=== PATIENT | female | born 1940 | race Caucasian/White ===

== ENCOUNTER 2024-04-02 11:11 | Inpatient (IN) | payer MEDICARE ==
[2024-04-02] MEDS: Diltiazem 25 MG/5 ML SDV IVPUSH ONE ×2 (11:29→14:08)
[2024-04-02] MEDS: Sodium Chloride 0.9% 10 ML Syringe FLUSH PRN (11:33)
[2024-04-02 11:38] LABS: BASOPHILS ABSOLUTE AUTO 0.02 K/uL (0.00-0.20); BASOPHILS PERCENT AUTO 0.4 % (0.0-2.0); EOSINOPHILS ABSOLUTE AUTO 0.02 K/uL (0.00-0.50); EOSINOPHILS PERCENT AUTO 0.4 % (0.0-5.0); HEMATOCRIT 41.1 % (34.0-46.0); HEMOGLOBIN 12.9 g/dL (11.7-15.5); LYMPHOCYTES ABSOLUTE AUTO 0.82 K/uL (0.50-3.50); LYMPHOCYTES PERCENT AUTO 14.7 % (10.0-50.0); MEAN CORPUSCULAR HEMOGLOBIN 29.6 pg (28.2-33.3); MEAN CORPUSCULAR HGB CONC 31.4 g/dL (31.7-36.0); MEAN CORPUSCULAR VOLUME 94.3 fL (84.0-98.0); MONOCYTES ABSOLUTE AUTO 0.46 K/uL (0.00-1.00); MONOCYTES PERCENT AUTO 8.2 % (2.0-14.0); NEUTROPHILS ABSOLUTE AUTO 4.26 K/uL (1.40-7.00); NEUTROPHILS PERCENT AUTO 76.3 % (45.0-80.0); PLATELET COUNT,PLT 282 K/uL (150-350); RED BLOOD CELL COUNT 4.36 M/uL (3.77-5.09); RED CELL DISTRIBUTION WIDTH 14.2 % (11.2-14.1); WHITE BLOOD CELL COUNT,WBC 5.6 K/uL (4.0-10.2)
[2024-04-02 12:20] LABS: ALBUMIN 2.7 g/dL (3.4-5.0); BILIRUBIN TOTAL 0.5 mg/dL (0.2-1.0); CALCIUM 9.1 mg/dL (8.5-10.1); CARBON DIOXIDE,CO2 32.4 mmol/L (21.0-32.0); CREATININE 0.83 mg/dL (0.51-1.17); EST CRCL DRUG DOSING (CG) 48.92 mL/min; MAGNESIUM 2.1 mg/dL (1.8-2.4); PROTEIN TOTAL,TP 5.9 g/dL (6.4-8.2)
[2024-04-02 12:21] LABS: ANION GAP 10.5 meq/L (7-15); POTASSIUM,K 2.9 mmol/L (3.5-5.1)
[2024-04-02] MEDS: Potassium Chloride 20 MEQ Tab.ER PO ONE ×4 (12:26→17:52)
[2024-04-02] MEDS: Diltiazem IR 60 MG Tab PO ONE (12:33)
[2024-04-02] MEDS: Furosemide 20 MG/2 ML VIAL IVPUSH ONE (14:07)
[2024-04-02] MEDS: Potassium Chloride 10 MEQ Tab.ER PO ONE ×2 (14:07→20:47)
[2024-04-02] MEDS: Apixaban 5 MG Tab PO SCH (14:17)
[2024-04-02] MEDS ORDERED: Acetaminophen 325 MG Tab PO PRN (14:19)
[2024-04-02] MEDS ORDERED: Ondansetron 4 MG Tab.DIS PO PRN (14:19)
[2024-04-02] MEDS: Diltiazem 125 MG in Sodium Chloride 0.9% 100 ML IV SCH (14:22)
[2024-04-02] MEDS: Sodium Chloride 0.9% 250 ML IV SCH (15:30)
[2024-04-02] MEDS: ALPRAZolam 0.25 MG Tab PO PRN (15:30)
[2024-04-02] MEDS: Albuterol/Ipratropium 3.0-0.5 MG/3 ML Neb Soln NEB PRN (15:30)
[2024-04-02] MEDS ORDERED: Loperamide 2 MG Tab PO PRN (16:00)
[2024-04-02] MEDS: Nicotine 7 MG/24 Hr Patch TRDERM SCH (16:13)
[2024-04-02 18:27] LABS: POTASSIUM,K 3.6 mmol/L (3.5-5.1)
[2024-04-02] MEDS: Albuterol 0.083% 2.5 MG/3 ML Neb Soln NEB PRN (18:30)
[2024-04-02] MEDS: Budesonide 0.5 MG/2 ML Neb Susp INH SCH (20:47)
[2024-04-02] MEDS: Arformoterol 15 MCG/2 ML Neb Soln INH SCH (20:47)
[2024-04-02] MEDS: LORazepam 0.5 MG Tab PO PRN (21:39)
[2024-04-02] MEDS: guaiFENesin 600 MG Tab.ER PO SCH (22:44)
[2024-04-03] MEDS: Diltiazem 125 MG/25 ML SDV ONE (01:41)
[2024-04-03] MEDS: Losartan 50 MG Tab PO SCH (07:15)
[2024-04-03 07:18] LABS: BASOPHILS ABSOLUTE AUTO 0.02 K/uL (0.00-0.20); BASOPHILS PERCENT AUTO 0.4 % (0.0-2.0); EOSINOPHILS ABSOLUTE AUTO 0.05 K/uL (0.00-0.50); EOSINOPHILS PERCENT AUTO 0.9 % (0.0-5.0); HEMATOCRIT 37.7 % (34.0-46.0); HEMOGLOBIN 11.5 g/dL (11.7-15.5); LYMPHOCYTES ABSOLUTE AUTO 0.93 K/uL (0.50-3.50); LYMPHOCYTES PERCENT AUTO 17.4 % (10.0-50.0); MEAN CORPUSCULAR HEMOGLOBIN 29.3 pg (28.2-33.3); MEAN CORPUSCULAR HGB CONC 30.5 g/dL (31.7-36.0); MEAN CORPUSCULAR VOLUME 96.2 fL (84.0-98.0); MONOCYTES ABSOLUTE AUTO 0.43 K/uL (0.00-1.00); MONOCYTES PERCENT AUTO 8.1 % (2.0-14.0); NEUTROPHILS PERCENT AUTO 73.2 % (45.0-80.0); PLATELET COUNT,PLT 254 K/uL (150-350); RED BLOOD CELL COUNT 3.92 M/uL (3.77-5.09); RED CELL DISTRIBUTION WIDTH 14.2 % (11.2-14.1); WHITE BLOOD CELL COUNT,WBC 5.3 K/uL (4.0-10.2)
[2024-04-03 07:37] LABS: CALCIUM 8.9 mg/dL (8.5-10.1); CARBON DIOXIDE,CO2 32.8 mmol/L (21.0-32.0); CREATININE 0.77 mg/dL (0.51-1.17); EST CRCL DRUG DOSING (CG) 52.73 mL/min; POTASSIUM,K 4.8 mmol/L (3.5-5.1)
[2024-04-03] MEDS: Albuterol 0.083% 2.5 MG/3 ML Neb Soln ONE (08:21)
[2024-04-03] MEDS: guaiFENesin 600 MG Tab.ER PO ONE (08:30)
[2024-04-03] MEDS: methylPREDNISolone Sodium Succinate 125 MG/2 ML SDV IVPUSH ONE (10:53)
[2024-04-03] MEDS: Diltiazem IR 60 MG Tab PO ONE ×2 (11:36→17:30)
[2024-04-03] MEDS: Bumetanide 1 MG Tab PO ONE (11:38)
[2024-04-03] MEDS: LORazepam 0.5 MG Tab PO PRN (21:10)
[2024-04-04] MEDS: Diltiazem IR 60 MG Tab PO ONE (01:44)
[2024-04-04] MEDS: methylPREDNISolone Sodium Succinate 40 MG/1 ML SDV IVPUSH ONE (07:00)
[2024-04-04] MEDS: Losartan 50 MG Tab PO SCH (07:02)
[2024-04-04] MEDS: Bumetanide 1 MG Tab PO SCH (07:02)
[2024-04-04 07:18] LABS: HEMATOCRIT 39.6 % (34.0-46.0); HEMOGLOBIN 12.4 g/dL (11.7-15.5); LYMPHOCYTES PERCENT AUTO 5.2 % (10.0-50.0); MEAN CORPUSCULAR HEMOGLOBIN 29.7 pg (28.2-33.3); MEAN CORPUSCULAR HGB CONC 31.3 g/dL (31.7-36.0); MONOCYTES ABSOLUTE AUTO 0.25 K/uL (0.00-1.00); MONOCYTES PERCENT AUTO 2.6 % (2.0-14.0); NEUTROPHILS PERCENT AUTO 92.2 % (45.0-80.0); PLATELET COUNT,PLT 304 K/uL (150-350); RED BLOOD CELL COUNT 4.17 M/uL (3.77-5.09); RED CELL DISTRIBUTION WIDTH 14.2 % (11.2-14.1); WHITE BLOOD CELL COUNT,WBC 9.6 K/uL (4.0-10.2)
[2024-04-04 07:38] LABS: ANION GAP 6.4 meq/L (7-15); CALCIUM 9.4 mg/dL (8.5-10.1); CARBON DIOXIDE,CO2 29.6 mmol/L (21.0-32.0); EST CRCL DRUG DOSING (CG) 40.6 mL/min; POTASSIUM,K 4.7 mmol/L (3.5-5.1)
[2024-04-04] MEDS: Diltiazem 120 MG Cap.CD PO ONE (08:07)
[2024-04-04] MEDS: Diltiazem 25 MG/5 ML SDV IVPUSH ONE ×2 (08:55→11:15)
[2024-04-04 11:18] VITALS: BP 130/53; PULSE 94
== END 2024-04-04 11:52 | DRG 309 ==
LOC: LL.ED 11:11 → LL.MS 13:59
PROVIDERS: ADMIT Emergency Medicine; ATTEND Emergency Medicine
DX: I48.91 Unspecified atrial fibrillation (principal); J44.1 Chronic obstructive pulmonary disease with (acute) exacerbation; E87.6 Hypokalemia; J44.9 Chronic obstructive pulmonary disease, unspecified; I50.9 Heart failure, unspecified; Z66 Do not resuscitate; I11.0 Hypertensive heart disease with heart failure; F41.9 Anxiety disorder, unspecified; F17.210 Nicotine dependence, cigarettes, uncomplicated; Z88.5 Allergy status to narcotic agent; Z88.8 Allergy status to other drugs, medicaments and biological substances; Z91.011 Allergy to milk products; Z79.899 Other long term (current) drug therapy
CPT/HCPCS: 36415; 71045; 71046; 80048; 80053; 83605; 83735; 83880; 84132; 84484; 85025; 85379; 85610; 93005; 93010; 94640; 94761; 94762; 96374; 96375; 96376; 97162-GP; 97165-GO; 99223; 99233; 99239; 99285-25; A9270-GY; J1940; J2919; J3490; J7050; J7613-GY; J7620-GY

== ENCOUNTER 2025-06-14 14:38 | Inpatient (IN) | payer MEDICARE ==
[2025-06-14 15:36] LABS: BASOPHILS ABSOLUTE AUTO 0.03 K/uL (0.00-0.20); BASOPHILS PERCENT AUTO 0.5 % (0.0-2.0); EOSINOPHILS ABSOLUTE AUTO 0.02 K/uL (0.00-0.50); EOSINOPHILS PERCENT AUTO 0.3 % (0.0-5.0); IMMATURE GRAN ABSOLUTE AUTO 0.01 10^3/uL (0.00-0.04); IMMATURE GRAN PERCENT AUTO 0.2 % (0.0-0.4); LYMPHOCYTES ABSOLUTE AUTO 0.57 K/uL (0.50-3.50); LYMPHOCYTES PERCENT AUTO 9.9 % (10.0-50.0); MONOCYTES ABSOLUTE AUTO 0.52 K/uL (0.00-1.00); MONOCYTES PERCENT AUTO 9.1 % (2.0-14.0); NEUTROPHILS ABSOLUTE AUTO 4.58 K/uL (1.40-7.00); NEUTROPHILS PERCENT AUTO 80.0 % (45.0-80.0); PLATELET COUNT,PLT 225 K/uL (150-350); RED BLOOD CELL COUNT 4.62 M/uL (3.77-5.09); RED CELL DISTRIBUTION WIDTH 13.2 % (11.2-14.1); WHITE BLOOD CELL COUNT,WBC 5.7 K/uL (4.0-10.2)
[2025-06-14 15:39] LABS: O2 DELIVERY DEVICE NASAL CANNULA
[2025-06-14] MEDS: Ondansetron 4 MG/2 ML SDV IVPUSH ONE (15:55)
[2025-06-14] MEDS: methylPREDNISolone Sodium Succinate 125 MG/2 ML SDV IV ONE (15:55)
[2025-06-14] MEDS: Sodium Chloride 0.9% 10 ML Syringe FLUSH PRN (15:56)
[2025-06-14 16:02] LABS: BASE EXCESS VENOUS 7 mmol/L ((-2)-3); BICARBONATE,VENOUS 33 mmol/L (23-28); O2 SATURATION VENOUS 77 %; PCO2 VENOUS 51 mmHG (41-51); PH,VENOUS 7.42 (7.31-7.41); PO2 VENOUS 42 mmHG
[2025-06-14 16:15] LABS: LACTIC ACID 1.9 mmol/L (0.4-2.0)
[2025-06-14 16:29] LABS: ALANINE AMINOTRANSFERASE,ALT 22 U/L (12-78); ASPARTATE AMNIOTRANSFERASE,AST 21 U/L (15-37); BILIRUBIN TOTAL 0.7 mg/dL (0.2-1.0); BLOOD UREA NITROGEN,BUN 21 mg/dL (7-18); CARBON DIOXIDE,CO2 32.9 mmol/L (21.0-32.0); CHLORIDE,CL 103 mmol/L (98-107); CREATININE 0.83 mg/dL (0.51-1.17); GLUCOSE RANDOM 96 mg/dL (70-99); POTASSIUM,K 3.7 mmol/L (3.5-5.1); PROTEIN TOTAL,TP 6.6 g/dL (6.4-8.2); SODIUM,NA 144 mmol/L (136-145)
[2025-06-14 16:31] LABS: ESTIMATED GFR 70 mL/min (>=60)
[2025-06-14 16:32] LABS: INR 1.0 (0.9-1.1); PTT,PARTIAL THROMBOPLSTIN TIME 24.7 SEC (23.8-34.4)
[2025-06-14] MEDS ORDERED: Albuterol 0.083% 2.5 MG/3 ML Neb Soln NEB PRN (17:12)
[2025-06-14] MEDS ORDERED: Ondansetron 4 MG/2 ML SDV IVPUSH PRN (17:13)
[2025-06-14] MEDS: methylPREDNISolone Sodium Succinate 125 MG/2 ML SDV IV SCH (18:37)
[2025-06-14] MEDS: Budesonide 0.5 MG/2 ML Neb Susp INH SCH (19:48)
[2025-06-14] MEDS: Arformoterol 15 MCG/2 ML Neb Soln INH SCH (19:51)
[2025-06-15 07:38] LABS: BASOPHILS ABSOLUTE AUTO 0.00 K/uL (0.00-0.20); BASOPHILS PERCENT AUTO 0.0 % (0.0-2.0); EOSINOPHILS ABSOLUTE AUTO 0.00 K/uL (0.00-0.50); EOSINOPHILS PERCENT AUTO 0.0 % (0.0-5.0); IMMATURE GRAN ABSOLUTE AUTO 0.01 10^3/uL (0.00-0.04); IMMATURE GRAN PERCENT AUTO 0.2 % (0.0-0.4); LYMPHOCYTES ABSOLUTE AUTO 0.24 K/uL (0.50-3.50); LYMPHOCYTES PERCENT AUTO 5.0 % (10.0-50.0); MONOCYTES ABSOLUTE AUTO 0.02 K/uL (0.00-1.00); MONOCYTES PERCENT AUTO 0.4 % (2.0-14.0); NEUTROPHILS ABSOLUTE AUTO 4.53 K/uL (1.40-7.00); NEUTROPHILS PERCENT AUTO 94.4 % (45.0-80.0); PLATELET COUNT,PLT 227 K/uL (150-350); RED BLOOD CELL COUNT 4.25 M/uL (3.77-5.09); RED CELL DISTRIBUTION WIDTH 13.0 % (11.2-14.1); WHITE BLOOD CELL COUNT,WBC 4.8 K/uL (4.0-10.2)
[2025-06-15] MEDS: Potassium Chloride 10 MEQ Tab.ER PO SCH (08:13)
[2025-06-15] MEDS: Cholecalciferol (Vitamin D3) 25 MCG Tab PO SCH (08:14)
[2025-06-15 08:28] LABS: ALANINE AMINOTRANSFERASE,ALT 19.0 U/L (12-78); ASPARTATE AMNIOTRANSFERASE,AST 17.0 U/L (15-37); BILIRUBIN TOTAL 0.4 mg/dL (0.2-1.0); BLOOD UREA NITROGEN,BUN 30.0 mg/dL (7-18); CARBON DIOXIDE,CO2 33.2 mmol/L (21.0-32.0); CHLORIDE,CL 105.0 mmol/L (98-107); CREATININE 0.93 mg/dL (0.51-1.17); EST CRCL DRUG DOSING (CG) 37.12 mL/min; GLUCOSE RANDOM 152.0 mg/dL (70-99); POTASSIUM,K 4.6 mmol/L (3.5-5.1); PROTEIN TOTAL,TP 6.1 g/dL (6.4-8.2); SODIUM,NA 144.0 mmol/L (136-145)
[2025-06-15 08:31] LABS: ESTIMATED GFR 61.0 mL/min (>=60)
[2025-06-15] MEDS: Dapagliflozin Propanediol [Farxiga] 10 MG Tablet *PT OWN MED PO SCH (10:12)
[2025-06-15] MEDS: ROFLUMILAST 250 MCG PO SCH (10:13)
[2025-06-16] MEDS: methylPREDNISolone Sodium Succinate 40 MG/1 ML SDV IVPUSH SCH (09:42)
[2025-06-16] MEDS: Budesonide 0.5 MG/2 ML Neb Susp INH SCH (19:30)
[2025-06-17 07:30] LABS: BASOPHILS ABSOLUTE AUTO 0.00 K/uL (0.00-0.20); BASOPHILS PERCENT AUTO 0.0 % (0.0-2.0); EOSINOPHILS ABSOLUTE AUTO 0.00 K/uL (0.00-0.50); EOSINOPHILS PERCENT AUTO 0.0 % (0.0-5.0); IMMATURE GRAN ABSOLUTE AUTO 0.02 10^3/uL (0.00-0.04); IMMATURE GRAN PERCENT AUTO 0.2 % (0.0-0.4); LYMPHOCYTES ABSOLUTE AUTO 0.33 K/uL (0.50-3.50); LYMPHOCYTES PERCENT AUTO 3.8 % (10.0-50.0); MONOCYTES ABSOLUTE AUTO 0.11 K/uL (0.00-1.00); MONOCYTES PERCENT AUTO 1.3 % (2.0-14.0); NEUTROPHILS ABSOLUTE AUTO 8.13 K/uL (1.40-7.00); NEUTROPHILS PERCENT AUTO 94.7 % (45.0-80.0); PLATELET COUNT,PLT 249 K/uL (150-350); RED BLOOD CELL COUNT 4.31 M/uL (3.77-5.09); RED CELL DISTRIBUTION WIDTH 13.2 % (11.2-14.1); WHITE BLOOD CELL COUNT,WBC 8.6 K/uL (4.0-10.2)
[2025-06-17 07:44] VITALS: BP 114/64; PULSE 58
[2025-06-17 08:01] LABS: ALANINE AMINOTRANSFERASE,ALT 15.0 U/L (12-78); ASPARTATE AMNIOTRANSFERASE,AST 16.0 U/L (15-37); BLOOD UREA NITROGEN,BUN 45.0 mg/dL (7-18); CARBON DIOXIDE,CO2 32.4 mmol/L (21.0-32.0); CHLORIDE,CL 105.0 mmol/L (98-107); CREATININE 1.05 mg/dL (0.51-1.17); EST CRCL DRUG DOSING (CG) 34.01 mL/min; GLUCOSE RANDOM 123.0 mg/dL (70-99); POTASSIUM,K 4.7 mmol/L (3.5-5.1); PROTEIN TOTAL,TP 6.0 g/dL (6.4-8.2); SODIUM,NA 144.0 mmol/L (136-145)
[2025-06-17 08:48] LABS: ESTIMATED GFR 53.0 mL/min (>=60)
[2025-06-17 09:20] LABS: BILIRUBIN TOTAL 0.3 mg/dL (0.2-1.0)
== END 2025-06-17 11:55 | disposition home or self-care (01) | DRG 193 ==
LOC: LL.ED 14:38 → LL.MS 16:40
PROVIDERS: ADMIT Physician Assistant; ATTEND Physician Assistant
DX: J18.9 Pneumonia, unspecified organism (principal); J44.9 Chronic obstructive pulmonary disease, unspecified; I11.0 Hypertensive heart disease with heart failure; E43 Unspecified severe protein-calorie malnutrition; J44.0 Chronic obstructive pulmonary disease with (acute) lower respiratory infection; J44.1 Chronic obstructive pulmonary disease with (acute) exacerbation; Z68.1 Body mass index [BMI] 19.9 or less, adult; I13.0 Hypertensive heart and chronic kidney disease with heart failure and stage 1 through stage 4 chronic kidney disease, or unspecified chronic kidney disease; Z66 Do not resuscitate; I48.91 Unspecified atrial fibrillation; N18.2 Chronic kidney disease, stage 2 (mild); H91.90 Unspecified hearing loss, unspecified ear; H54.7 Unspecified visual loss; E78.00 Pure hypercholesterolemia, unspecified; I50.9 Heart failure, unspecified; M19.90 Unspecified osteoarthritis, unspecified site; F41.9 Anxiety disorder, unspecified; E53.8 Deficiency of other specified B group vitamins; F17.200 Nicotine dependence, unspecified, uncomplicated; Z99.81 Dependence on supplemental oxygen; Z91.0110 Allergy to milk products, unspecified; Z79.899 Other long term (current) drug therapy; Z88.8 Allergy status to other drugs, medicaments and biological substances
CPT/HCPCS: 36415; 71045; 80053; 82803; 83605; 83735; 85025; 85610; 85730; 86140; 87040; 87428-QW; 94640; 94761; 96374; 96375; 99223; 99232; 99233; 99239; 99285-25; A9270-GY; J0696; J2405; J2919; J3490